=== PATIENT | female | born 1945 | race American Indian/Alaskan Native ===

== ENCOUNTER 2017-02-19 15:20 | Inpatient (IN) | payer MEDICARE, BC ==
--- NOTE | 2017-02-19 16:10 | EDM.PDOC ---
ED HPI GENERAL MEDICAL PROBLEM - General Chief Complaint: Back Pain or Injury Stated Complaint: [facility] Time Seen by Provider: 02/19/17 15:48 Source of Information: Reports: Patient - History of Present Illness INITIAL COMMENTS - FREE TEXT/NARRATIVE: Patient was brought by ambulance today for "feeling off". She had N/V yesterday , eating/drinking ok today without further episodes. She reports headache, fatigue and overall feeling of weakness. Has lower back pain, feels like this is worse on the left. She does have chronic lumbago and was recently switched from oxycodone to tramadol due to side effect of dizziness. Had recent UTI, this was treated with unknown antibiotic. Denies dysuria or hematuria. She also reports a yeast rash to abdomen and under right breast (had left mastectomy due to cancer). 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: Psychiatric History: Reports: Anxiety Endocrine/Metabolic History: Reports: Diabetes, type II - Past Surgical History HEENT Surgical History: Reports: Cataract surgery GI Surgical History: Reports: Cholecystectomy Female Surgical History: Reports: Hysterectomy Musculoskeletal Surgical History: Reports: Joint replacement Other Musculoskeletal Surgeries/Procedures:: bilateral knees Social & Family History - Tobacco Use Smoking Status *Q: Never Smoker Second Hand Smoke Exposure: No - Caffeine Use Caffeine Use: Reports: None - Alcohol Use Days Per Week of Alcohol Use: 0 - Recreational Drug Use Recreational Drug Use: No ED ROS GENERAL - Review of Systems Review Of Systems: See Below Constitutional: Reports: malaise, weakness, fatigue. Denies: fever, chills, diaphoresis, decreased appetite HEENT: Reports: No symptoms Respiratory: Reports: No Symptoms Cardiovascular: Reports: No symptoms GI/Abdominal: Reports: No symptoms : Reports: flank pain. Denies: dysuria, frequency, hematuria Musculoskeletal: Reports: back pain Skin: Reports: rash, erythema Neurological: Reports: No Symptoms Psychiatric: Reports: No symptoms ED EXAM, GENERAL - Physical Exam Exam: See Below Exam Limited By: No limitations General Appearance: alert, WD/WN, no apparent distress Ear Exam: bilateral ear: auricle normal, canal normal, TM normal Nose: normal inspection Throat/Mouth: Normal inspection, Normal oropharynx Head: atraumatic, normocephalic Neck: normal inspection. No: lymphadenopathy (L), lymphadenopathy (R) Respiratory/Chest: no respiratory distress, lungs clear, normal breath sounds Cardiovascular: regular rate, rhythm, no murmur GI/Abdominal: normal bowel sounds, soft, non tender Back Exam: paraspinal tenderness. No: CVA tenderness (L), CVA tenderness (R) Neurological: alert, oriented, no motor/sensory deficits Psychiatric: normal affect, normal mood Skin Exam: Warm, Dry, Other (Warm, erythematous rash to left upper abdomen and left flank/back. ) Course - Vital Signs Last Recorded V/S: Last Vital Signs Temp 100.8 F H 02/19/17 15:32 Pulse 88 02/19/17 15:32 Resp 20 02/19/17 15:32 BP 160/69 H 02/19/17 15:32 Pulse Ox 90 L 02/19/17 15:32 - Orders/Labs/Meds Orders: Active Orders 24 hr Category Date Time Status Chest 2V [CR] Stat Exams 02/19/17 16:09 Taken CULTURE BLOOD [BC] Stat Lab 02/19/17 18:15 Ordered CULTURE BLOOD [BC] Stat Lab 02/19/17 18:15 Ordered CULTURE URINE [RM] Stat Lab 02/19/17 16:20 Received SEDIMENTATION RATE AUTO [HEME] Stat Lab 02/19/17 18:27 Ordered Linezolid [Zyvox] Med 02/19/17 18:30 Active 600 mg PO Q12H cefTRIAXone [Rocephin] 2 gm Med 02/19/17 18:27 Active Sodium Chloride 0.9% [Normal Saline] 100 ml IV ONETIME Blood Culture x2 Reflex Set [OM.PC] Stat Oth 02/19/17 18:15 Ordered Medication Orders Ceftriaxone Sodium 2 gm/ (Sodium Chloride) 100 mls @ 200 mls/hr IV ONETIME ONE Stop: 02/19/17 18:56 Linezolid (Zyvox) 600 mg PO Q12H IZAIAH Labs: Laboratory Tests 02/19/17 02/19/17 02/19/17 Range/Units 16:20 16:24 16:24 WBC 25.51 H (3.98-10.04) K/mm3 RBC 3.73 L (3.98-5.22) M/mm3 Hgb 10.6 L (11.2-15.7) gm/L Hct 33.6 L (34.1-44.9) % MCV 90.1 (79.4-94.8) fl MCH 28.4 (25.6-32.2) pg MCHC 31.5 L (32.2-35.5) g/dl RDW Std Deviation 47.0 H (36.4-46.3) fL Plt Count 259 (182-369) K/mm3 MPV 10.8 (9.4-12.3) fl Neutrophils % (Manual) 92 H (40-60) % Band Neutrophils % 1 (0-10) % Lymphocytes % (Manual) 6 L (20-40) % Atypical Lymphs % 0 % Monocytes % (Manual) 1 L (2-10) % Eosinophils % (Manual) 0 L (0.7-5.8) % Basophils % (Manual) 0 L (0.1-1.2) Platelet Estimate Adequate RBC Morph Comment Normal Sodium 138 (136-145) mEq/L Potassium 4.6 (3.5-5.1) mEq/L Chloride 107 (98-107) mEq/L Carbon Dioxide 23 (21-32) mEq/L Anion Gap 12.6 (5-15) BUN 29 H (7-18) mg/dL Creatinine 1.4 H (0.55-1.02) mg/dL Est Cr Clr Drug Dosing 27.41 mL/min Estimated GFR (MDRD) 37 (>60) mL/min BUN/Creatinine Ratio 20.7 H (14-18) Glucose 143 H (83-115) mg/dL Calcium 8.3 L (8.5-10.1) mg/dL Total Bilirubin 0.3 (0.2-1.0) mg/dL AST 14 L (15-37) U/L ALT 19 (14-59) U/L Alkaline Phosphatase 74 (46-116) U/L C-Reactive Protein 4.7 H* (<1.0) mg/dL Total Protein 7.4 (6.4-8.2) g/dl Albumin 3.0 L (3.4-5.0) g/dl Globulin 4.4 gm/dL Albumin/Globulin Ratio 0.7 L (1-2) Urine Color Yellow (Yellow) Urine Appearance Slt cloudy H (Clear) Urine pH 5.5 (5.0-8.0) Ur Specific [place] 1.025 (1.005-1.030) Urine Protein 3+ H (Negative) Urine Glucose (UA) Trace H (Negative) Urine Ketones Negative (Negative) Urine Occult Blood Trace-lysed H (Negative) Urine Nitrite Positive H (Negative) Urine Bilirubin Negative (Negative) Urine Urobilinogen 0.2 (0.2-1.0) Ur Leukocyte Esterase Negative (Negative) Urine RBC 0-5 (0-5) /hpf Urine WBC 10-20 H (0-5) /hpf Ur Squamous Epith Cells 10-20 H (0-5) /hpf Urine Bacteria Few (FEW) /hpf Urine Mucus Not seen (FEW) /hpf Meds: Medications Generic Name Dose Route Start Last Admin Trade Name Freq PRN Reason Stop Dose Admin Ceftriaxone Sodium 2 gm/ 100 mls @ 200 mls/hr 02/19/17 18:27 Sodium Chloride IV 02/19/17 18:56 ONETIME ONE Linezolid 600 mg 02/19/17 18:30 Zyvox PO Q12H IZAIAH - Re-Assessments/Exams Free Text/Narrative Re-Assessment/Exam: Likely pyelonephritis as well as significant cellulitis to left abdomen and back. WBC 25,510 and CRP 4.7. Blood cultures pending. Discussed with Dr Bloom, with increased risk due to diabetes she will be admitted. Treatment of infection started in ER with 2g Rocephin and 600mg to cover MRSA as well. Discussed with Dr Olivarez/hospitalist and she agrees to admit the patient. 02/19/17 18:29 02/19/17 18:35 Departure - Departure Time of Disposition: 18:38 Disposition: Admitted As Inpatient 65 Condition: fair Clinical Impression: Pyelonephritis Cellulitis Qualifiers: Site of cellulitis: trunk Site of cellulitis of trunk: abdominal wall Qualified Code(s): L03.311 - Cellulitis of abdominal wall Referrals: PCP,Unknown [Primary Care Provider] - Forms: ED Department Discharge - My Orders Last 24 Hours: My Active Orders 02/19/17 16:09 Chest 2V [CR] Stat 02/19/17 16:20 CULTURE URINE [RM] Stat 02/19/17 18:15 CULTURE BLOOD [BC] Stat CULTURE BLOOD [BC] Stat Blood Culture x2 Reflex Set [OM.PC] Stat 02/19/17 18:27 SEDIMENTATION RATE AUTO [HEME] Stat cefTRIAXone [Rocephin] 2 gm Sodium Chloride 0.9% [Normal Saline] 100 ml IV ONETIME 02/19/17 18:30 Linezolid [Zyvox] 600 mg PO Q12H - Assessment/Plan Last 24 Hours: My Active Orders 02/19/17 16:09 Chest 2V [CR] Stat 02/19/17 16:20 CULTURE URINE [RM] Stat 02/19/17 18:15 CULTURE BLOOD [BC] Stat CULTURE BLOOD [BC] Stat Blood Culture x2 Reflex Set [OM.PC] Stat 02/19/17 18:27 SEDIMENTATION RATE AUTO [HEME] Stat cefTRIAXone [Rocephin] 2 gm Sodium Chloride 0.9% [Normal Saline] 100 ml IV ONETIME 02/19/17 18:30 Linezolid [Zyvox] 600 mg PO Q12H
[2017-02-19] MEDS ORDERED: cefTRIAXone 2 GM in Sodium Chloride 0.9% 100 ML IV ONE (18:27)
[2017-02-19] MEDS ORDERED: Linezolid 600 MG Tab PO SCH (18:30)
[2017-02-19] MEDS ORDERED: 50% Dextrose in Water 50 ML Syringe IVPUSH PRN (19:26)
[2017-02-19] MEDS ORDERED: Sodium Chloride 0.9% 1,000 ML IV SCH (19:30)
--- NOTE | 2017-02-19 19:32 | PCM.HP ---
H&P History of Present Illness - General Date of Service: 02/19/17 Admit Problem/Dx: Admission Diagnosis/Problem Admission Diagnosis/Problem Cellulitis Source of Information: Patient, Provider History Limitations: Reports: No limitations - History of Present Illness Initial Comments - Free Text/Narative: 71 year old female with PMH DM, recently had antibiotic therapy for a UTI; does not feel well. Has had episode of N/V. Has a sense of malaise, generalized weakness. Has not been febrile or had chills. A UA supports an AUTI or recurrent, additionally, a cellulitis is noted on the upper abdomen. WBC 25.51 (92% N)/CRP 4.7/ UA + Nitrites. UC and BC s have been drawn; the patient received Zyvox and Rocephin in the ED. Onset of Symptoms: Reports: gradual Duration of Symptoms: Reports: Day(s):, Getting worse Location: Reports: abdomen Severity: moderate Improves with: Reports: Medication Worsens with: Reports: None Associated Symptoms: Reports: fever/chills, malaise, weakness Back Pain Score (Numeric/FACES): 4 - Related Data Allergies/Adverse Reactions: Allergies Allergy/AdvReac Type Severity Reaction Status Date / Time glimepiride Allergy Rash Verified 02/19/17 15:32 sulfamethoxazole AdvReac Vomiting Verified 02/20/17 08:11 [From Bactrim] trimethoprim [From Bactrim] AdvReac Vomiting Verified 02/20/17 08:11 Home Medications: Home Meds Bumetanide 0.5 mg PO DAILY 02/19/17 [History] Cholecalciferol (Vitamin D3) [Vitamin D3] 5,000 unit PO DAILY 02/19/17 [History] Clopidogrel [Plavix] 75 mg PO DAILY 02/19/17 [History] Enalapril [Vasotec] 40 mg PO DAILY 02/19/17 [History] Ferrous Sulfate [High Potency Iron] 325 mg PO DAILY 02/19/17 [History] Fish Oil/Trumann-3 Fatty Acids [Fish Oil 1,000 MG] 1,000 mg PO DAILY 02/19/17 [ History] Metoprolol Succinate [Toprol XL] 25 mg PO DAILY 02/19/17 [History] glipiZIDE [Glipizide ER] 5 mg PO BID 02/19/17 [History] traMADol HCl [Tramadol HCl] 50 mg PO TID PRN 02/19/17 [History] Past Medical History Cardiovascular History: Reports: High cholesterol, Hypertension 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: Psychiatric History: Reports: Anxiety Endocrine/Metabolic History: Reports: Diabetes, type II - Past Surgical History HEENT Surgical History: Reports: Cataract surgery GI Surgical History: Reports: Cholecystectomy Female Surgical History: Reports: Hysterectomy Musculoskeletal Surgical History: Reports: Joint replacement Other Musculoskeletal Surgeries/Procedures:: bilateral knees Social & Family History - Tobacco Use Smoking Status *Q: Never Smoker Second Hand Smoke Exposure: No - Caffeine Use Caffeine Use: Reports: None - Alcohol Use Days Per Week of Alcohol Use: 0 - Recreational Drug Use Recreational Drug Use: No H&P Review of Systems - Review of Systems: Review Of Systems: See Below General: Reports: fever, malaise, weakness, fatigue HEENT: Reports: no symptoms Pulmonary: Reports: No Symptoms Cardiovascular: Reports: no symptoms Gastrointestinal: Reports: No symptoms Genitourinary: Reports: frequency. Denies: no symptoms Musculoskeletal: Reports: no symptoms Skin: Reports: rash Psychiatric: Reports: no symptoms Neurological: Reports: No Symptoms Hematologic/Lymphatic: Reports: no symptoms Immunologic: Reports: no symptoms Exam - Exam Exam: See Below - Vital Signs Vital Signs: Last Vital Signs Temp 37.3 C 02/19/17 19:05 Pulse 79 02/19/17 19:05 Resp 16 02/19/17 19:05 BP 124/63 02/19/17 19:05 Pulse Ox 95 02/19/17 19:05 Weight: 107.456 kg - Exam Quality Assessment: DVT prophylaxis General: alert, oriented, cooperative, mild distress HEENT: Conjunctiva clear, EACs clear, EOMI, Nares patent, Normal nasal septum, Pupils equal, Pupils reactive Neck: supple, trachea midline Lungs: Normal respiratory effort Cardiovascular: regular rate, regular rhythm Abdomen: normal bowel sounds, soft, other (panus with skin rash, non pruritic) (Female) Exam: Deferred Rectal (Female) Exam: Deferred Back Exam: CVA tenderness (L), other (rash noted) Extremities: edema (1+) Skin: warm, rash (abdomen) Neurological: cranial nerves intact, normal gait, normal speech Neuro Extensive - Mental Status: alert, oriented x3, normal mood/affect, normal cognition, memory intact Neuro Extensive - Motor, Sensory, Reflexes: CN II-XII intact Psychiatric: alert, normal affect, normal mood - Patient Data Result Diagrams: 02/20/17 06:57 02/20/17 06:57 *Q Meaningful Use (ADM) - VTE *Q VTE Criteria *Q: - Stroke *Q Stroke Criteria *Q: - AMI *Q AMI Criteria *Q: - Problem List (1) Cellulitis SNOMED Code(s): 627707289 ICD Code: L03.90 - CELLULITIS, UNSPECIFIED Status: Acute Current Visit: Yes Qualifiers: Site of cellulitis: trunk Site of cellulitis of trunk: abdominal wall Qualified Code(s): L03.311 - Cellulitis of abdominal wall (2) Cellulitis SNOMED Code(s): 440731324 ICD Code: L03.90 - CELLULITIS, UNSPECIFIED Status: Acute Current Visit: No Onset Date: 12/16/14 (3) UTI, Urinary tract infectious disease SNOMED Code(s): 23519973 ICD Code: N39.0 - URINARY TRACT INFECTION, SITE NOT SPECIFIED Status: Acute Current Visit: No Problem List Initiated/Reviewed/Updated: Yes Orders Last 24hrs: Active Orders 24 hr Category Date Time Status Accu Check [Blood Glucose Check, Bedside] [RC] Care 02/19/17 19:25 Ordered QIDACANDBED Activity as Tolerated [RC] .Routine Care 02/19/17 19:08 Ordered Antiembolic Devices [RC] PER UNIT ROUTINE Care 02/19/17 19:24 Ordered Consult to Care Management [Consult to Case Management] Cons 02/22/17 09:00 Ordered [CONS] Routine Consult to Diabetic Nurse Specialist [CONS] Routine Cons 02/22/17 11:00 Ordered Consult to Occupational Therapy [OT Evaluation and Cons 02/22/17 08:00 Ordered Treatment] [CONS] Routine Consult to Physical Therapy [PT Evaluation and Cons 02/22/17 09:00 Ordered Treatment] [CONS] Routine ADA Diabetic [[employer] Diabetic [employer] Diet] [DIET Diet 02/19/17 Dinner Ordered ] BASIC METABOLIC PANEL,BMP [CHEM] DAILY Lab 02/20/17 05:00 Ordered BASIC METABOLIC PANEL,BMP [CHEM] DAILY Lab 02/21/17 05:00 Ordered BASIC METABOLIC PANEL,BMP [CHEM] DAILY Lab 02/22/17 05:00 Ordered CBC WITH AUTO DIFF [HEME] DAILY Lab 02/20/17 05:00 Ordered CBC WITH AUTO DIFF [HEME] DAILY Lab 02/21/17 05:00 Ordered CBC WITH AUTO DIFF [HEME] DAILY Lab 02/22/17 05:00 Ordered CRP [C-REACTIVE PROTEIN] [CHEM] DAILY Lab 02/20/17 05:00 Ordered CRP [C-REACTIVE PROTEIN] [CHEM] DAILY Lab 02/21/17 05:00 Ordered CRP [C-REACTIVE PROTEIN] [CHEM] DAILY Lab 02/22/17 05:00 Ordered GLYCOSYLATED HEMOGLOBIN,HGBA1C [CHEM] Routine Lab 02/20/17 05:00 Ordered LIPID PANEL [CHEM] Routine Lab 02/20/17 05:00 Ordered MAGNESIUM [CHEM] DAILY Lab 02/20/17 05:00 Ordered MAGNESIUM [CHEM] DAILY Lab 02/21/17 05:00 Ordered MAGNESIUM [CHEM] DAILY Lab 02/22/17 05:00 Ordered TSH [CHEM] Routine Lab 02/20/17 05:00 Ordered Bumetanide [Bumex] Med 02/20/17 09:00 Once 0.5 mg IVPUSH ONETIME ONE Clopidogrel [Plavix] Med 02/20/17 09:00 Ordered 75 mg PO DAILY Dextrose 50% in Water Med 02/19/17 19:26 Ordered 50 ml IVPUSH ASDIRECTED PRN Enoxaparin [Lovenox] Med 02/20/17 09:00 Ordered 30 mg SUBCUT DAILY Ferrous Sulfate [High Potency Iron] Med 02/20/17 09:00 Ordered 325 mg PO DAILY Insulin Aspart [NovoLOG] Med 02/19/17 22:00 Ordered See Protocol SUBCUT QIDACANDBED Metoprolol Succinate [Toprol XL] Med 02/20/17 09:00 Ordered 25 mg PO DAILY Nystatin [Nystop] Med 02/19/17 21:00 Ordered 1 gm TOP BID Sodium Chloride 0.9% @ 75 MLS/HR(1000ml Bag) Med 02/19/17 19:30 Ordered Sodium Chloride 0.9% [Normal Saline] 1,000 ml IV ASDIRECTED Vancomycin Pharmacy to Dose [Pharmacy to Dose - Med 02/19/17 19:15 Ordered Vancomycin] 1 dose .XX ASDIRECTED Vancomycin [Vancocin] 1 gm Med 02/19/17 22:00 Ordered Sodium Chloride 0.9% [Normal Saline] 250 ml IV ONETIME cefTRIAXone [Rocephin] 2 gm Med 02/20/17 08:00 Ordered Sodium Chloride 0.9% [Normal Saline] 100 ml IV Q24H traMADol [Ultram] Med 02/19/17 19:17 Ordered 50 mg PO TID PRN PETEY Hose [Antiembolic Hose] [OM.PC] Routine Oth 02/19/17 19:24 Ordered Code Status [Resuscitation Status] Routine Resus Stat 02/19/17 19:04 Ordered Medication Orders Bumetanide (Bumex) 0.5 mg IVPUSH ONETIME ONE Stop: 02/20/17 09:01 Clopidogrel Bisulfate (Plavix) 75 mg PO DAILY IZAIAH Dextrose/Water (Dextrose 50% In Water) 50 ml IVPUSH ASDIRECTED PRN PRN Reason: Hypoglycemia Enoxaparin Sodium (Lovenox) 30 mg SUBCUT DAILY [facility] Vancomycin HCl 1 gm/ Sodium (Chloride) 250 mls @ 250 mls/hr IV ONETIME ONE Stop: 02/19/17 22:59 Ceftriaxone Sodium 2 gm/ (Sodium Chloride) 100 mls @ 200 mls/hr IV Q24H IZAIAH Sodium Chloride (Normal Saline) 1,000 mls @ 75 mls/hr IV ASDIRECTED [facility] Insulin Aspart (Novolog) 0 unit SUBCUT QIDACANDBED [facility] PRN Reason: Protocol Metoprolol Succinate (Toprol Xl) 25 mg PO DAILY [facility] Non-Formulary Medication (Ferrous Sulfate [High Potency Iron]) 325 mg PO DAILY IZAIAH Nystatin (Nystop) 1 gm TOP BID IZAIAH Tramadol HCl (Ultram) 50 mg PO TID PRN PRN Reason: Pain Vancomycin HCl (Pharmacy To Dose - Vancomycin) 1 dose .XX ASDIRECTED [facility] Assessment/Plan Comment:: Impression: Leukocytosis (left shift) with Cellulitis AUTI Diabetes Mellitus Chronic back pain, dizziness after medication change Skin rash under breast Cellulitis on abdomen Chronic Diabetes mellitus HTN Hyperlipidemia Morbid Obesity Plan: Continue Rocephin 2 gm IV Q 24 H Start Vancomycin 1 gm, pharmacy to dose IVF, then dc. Resume home meds PT/OT, may need Home Health DVT/GI prophylaxis
[2017-02-19] MEDS: Insulin Aspart 100 Units/ML 3 ML Pen SUBCUT SCH (21:08)
[2017-02-19] MEDS: Nystatin Topical Powder 15 GM Bottle TOP SCH (21:08)
[2017-02-20] MEDS: Insulin Aspart 100 Units/ML 3 ML Pen SUBCUT SCH ×4 (08:08→21:31)
[2017-02-20] MEDS ORDERED: Bumetanide 1 MG/4 ML MDV IVPUSH ONE (09:00)
[2017-02-20] MEDS: Ferrous Sulfate 325 MG Tab PO SCH (09:59)
[2017-02-20] MEDS: Nystatin Topical Powder 15 GM Bottle TOP SCH ×2 (10:00→21:30)
[2017-02-20] MEDS: Enoxaparin 30 MG/0.3 ML Syringe SUBCUT SCH (10:00)
[2017-02-20] MEDS: Metoprolol Succinate 25 MG Tab.ER PO SCH (10:02)
[2017-02-20] MEDS: Clopidogrel 75 MG Tab PO SCH (10:02)
--- NOTE | 2017-02-20 13:33 | PCM.PN ---
- General Info Date of Service: 02/20/17 Functional Status: Reports: pain controlled, tolerating diet, ambulating, urinating - Review of Systems General: Reports: No Symptoms HEENT: Reports: no symptoms Pulmonary: Reports: no symptoms Cardiovascular: Reports: No Symptoms Gastrointestinal: Reports: No symptoms Genitourinary: Reports: no symptoms Musculoskeletal: Reports: no symptoms Skin: Reports: no symptoms Neurological: Reports: No Symptoms Psychiatric: Reports: no symptoms - Patient Data Vitals - most recent: Last Vital Signs Temp 37.2 C 02/20/17 08:09 Pulse 73 02/20/17 10:02 Resp 18 02/20/17 08:09 BP 120/64 02/20/17 10:02 Pulse Ox 95 02/20/17 08:09 Weight - most recent: 107.547 kg I&O - last 24 hours: Intake & Output 02/19/17 02/20/17 02/20/17 22:59 06:59 14:59 Intake Total 1250 120 Output Total 300 800 Balance -300 450 120 Lab Results last 24 hrs: Laboratory Results - last 24 hr 02/19/17 02/20/17 02/20/17 Range/Units 21:06 06:57 06:57 WBC 16.23 H (3.98-10.04) K/mm3 RBC 3.21 L (3.98-5.22) M/mm3 Hgb 9.2 L (11.2-15.7) gm/L Hct 29.5 L (34.1-44.9) % MCV 91.9 (79.4-94.8) fl MCH 28.7 (25.6-32.2) pg MCHC 31.2 L (32.2-35.5) g/dl RDW Std Deviation 47.2 H (36.4-46.3) fL Plt Count 227 (182-369) K/mm3 MPV 11.1 (9.4-12.3) fl Neut % (Auto) 78.4 H (34.0-71.1) % Lymph % (Auto) 14.0 L (19.3-51.7) % [place] % (Auto) 6.4 (4.7-12.5) % Eos % (Auto) 1.0 (0.7-5.8) Baso % (Auto) 0.1 (0.1-1.2) % Neut # (Auto) 12.72 H (1.56-6.13) K/mm3 Lymph # (Auto) 2.27 (1.18-3.74) K/mm3 [place] # (Auto) 1.04 H (0.24-0.36) K/mm3 Eos # (Auto) 0.16 (0.04-0.36) K/mm3 Baso # (Auto) 0.02 (0.01-0.08) K/mm3 Sodium 139 (136-145) mEq/L Potassium 4.1 (3.5-5.1) mEq/L Chloride 107 (98-107) mEq/L Carbon Dioxide 25 (21-32) mEq/L Anion Gap 11.1 (5-15) BUN 28 H (7-18) mg/dL Creatinine 1.4 H (0.55-1.02) mg/dL Est Cr Clr Drug Dosing 27.41 mL/min Estimated GFR (MDRD) 37 (>60) mL/min BUN/Creatinine Ratio 20.0 H (14-18) Glucose 101 (83-115) mg/dL POC Glucose 143 H (83-110) mg/dL Hemoglobin A1c (4.50-6.20) % Calcium 7.7 L (8.5-10.1) mg/dL Magnesium 2.0 (1.8-2.4) mg/dl C-Reactive Protein 13.6 H* (<1.0) mg/dL Triglycerides 114 (<150) mg/dL Cholesterol 165 (<200) mg/dL LDL Cholesterol Direct 93 (<100) mg/dL HDL Cholesterol 51.0 (40-59) mg/dL TSH 3rd Generation 1.514 (0.358-3.74) uIU/mL 02/20/17 02/20/17 02/20/17 Range/Units 06:57 07:53 11:27 WBC (3.98-10.04) K/mm3 RBC (3.98-5.22) M/mm3 Hgb (11.2-15.7) gm/L Hct (34.1-44.9) % MCV (79.4-94.8) fl MCH (25.6-32.2) pg MCHC (32.2-35.5) g/dl RDW Std Deviation (36.4-46.3) fL Plt Count (182-369) K/mm3 MPV (9.4-12.3) fl Neut % (Auto) (34.0-71.1) % Lymph % (Auto) (19.3-51.7) % [place] % (Auto) (4.7-12.5) % Eos % (Auto) (0.7-5.8) Baso % (Auto) (0.1-1.2) % Neut # (Auto) (1.56-6.13) K/mm3 Lymph # (Auto) (1.18-3.74) K/mm3 [place] # (Auto) (0.24-0.36) K/mm3 Eos # (Auto) (0.04-0.36) K/mm3 Baso # (Auto) (0.01-0.08) K/mm3 Sodium (136-145) mEq/L Potassium (3.5-5.1) mEq/L Chloride (98-107) mEq/L Carbon Dioxide (21-32) mEq/L Anion Gap (5-15) BUN (7-18) mg/dL Creatinine (0.55-1.02) mg/dL Est Cr Clr Drug Dosing mL/min Estimated GFR (MDRD) (>60) mL/min BUN/Creatinine Ratio (14-18) Glucose (83-115) mg/dL POC Glucose 98 153 H (83-110) mg/dL Hemoglobin A1c 7.50 H (4.50-6.20) % Calcium (8.5-10.1) mg/dL Magnesium (1.8-2.4) mg/dl C-Reactive Protein (<1.0) mg/dL Triglycerides (<150) mg/dL Cholesterol (<200) mg/dL LDL Cholesterol Direct (<100) mg/dL HDL Cholesterol (40-59) mg/dL TSH 3rd Generation (0.358-3.74) uIU/mL Med Orders - Current: Current Medications Clopidogrel Bisulfate (Plavix) 75 mg PO DAILY [facility] Last Admin: 02/20/17 10:02 Dose: 75 mg Dextrose/Water (Dextrose 50% In Water) 50 ml IVPUSH ASDIRECTED PRN PRN Reason: Hypoglycemia Enoxaparin Sodium (Lovenox) 30 mg SUBCUT DAILY [facility] Last Admin: 02/20/17 10:00 Dose: 30 mg Ferrous Sulfate (Ferrous Sulfate) 325 mg PO DAILY [facility] Last Admin: 02/20/17 09:59 Dose: 325 mg Vancomycin HCl 1 gm/ Sodium (Chloride) 250 mls @ 250 mls/hr IV Q24H [facility] Last Admin: 02/19/17 21:09 Dose: 250 mls/hr Ceftriaxone Sodium 2 gm/ (Sodium Chloride) 100 mls @ 200 mls/hr IV Q24H [facility] Insulin Aspart (Novolog) 0 unit SUBCUT QIDACANDBED [facility] PRN Reason: Protocol Last Admin: 02/20/17 11:45 Dose: 1 unit Metoprolol Succinate (Toprol Xl) 25 mg PO DAILY [facility] Last Admin: 02/20/17 10:02 Dose: 25 mg Nystatin (Nystop) 0 gm TOP BID [facility] Last Admin: 02/20/17 10:00 Dose: 1 applic Tramadol HCl (Ultram) 50 mg PO TID PRN PRN Reason: Pain Vancomycin HCl (Pharmacy To Dose - Vancomycin) 0 dose .XX ASDIRECTED PRN PRN Reason: RX TO DOSE VANCOMYCIN Discontinued Medications Bumetanide (Bumex) 0.5 mg IVPUSH ONETIME ONE Stop: 02/20/17 09:01 Last Admin: 02/20/17 10:04 Dose: 0.5 mg Ceftriaxone Sodium 2 gm/ (Sodium Chloride) 100 mls @ 200 mls/hr IV ONETIME ONE Stop: 02/19/17 18:56 Last Admin: 02/19/17 18:49 Dose: 200 mls/hr Sodium Chloride (Normal Saline) 1,000 mls @ 75 mls/hr IV ASDIRECTED [facility] Last Admin: 02/19/17 21:09 Dose: 75 mls/hr Linezolid (Zyvox) 600 mg PO Q12H [facility] Last Admin: 02/19/17 20:11 Dose: Not Given - Exam Quality Assessment: DVT prophylaxis General: alert, oriented, cooperative, no acute distress HEENT: Pupils equal, Pupils reactive, EOMI Neck: supple, trachea midline, no JVD Lungs: Normal respiratory effort Cardiovascular: Regular Rate, Regular Rhythm Abdomen: bowel sounds present, soft, no tenderness, no distension (Female) Exam: Deferred Back Exam: normal inspection Extremities: normal pulses, edema Skin: warm Neurological: no new focal deficit, normal gait, normal speech Psy/Mental Status: alert, normal affect, normal mood - Problem List Review Problem List Initiated/Reviewed/Updated: Yes - My Orders Last 24 Hours: My Active Orders 02/19/17 19:04 Code Status [Resuscitation Status] Routine 02/19/17 19:05 Admission Status [Patient Status] [ADT] Routine 02/19/17 19:08 Activity as Tolerated [RC] .Routine 02/19/17 19:17 traMADol [Ultram] 50 mg PO TID PRN 02/19/17 19:24 Antiembolic Devices [RC] 10,22 PETEY Hose [Antiembolic Hose] [OM.PC] Routine 02/19/17 19:25 Accu Check [Blood Glucose Check, Bedside] [RC] QIDACANDBED 02/19/17 19:26 Dextrose 50% in Water 50 ml IVPUSH ASDIRECTED PRN 02/19/17 21:00 Nystatin [Nystop] 0 gm TOP BID 02/19/17 22:00 Insulin Aspart [NovoLOG] See Protocol SUBCUT QIDACANDBED Vancomycin Pharmacy to Dose [Pharmacy to Dose - Vancomycin] 0 dose .XX ASDIRECTED PRN Vancomycin [Vancocin] 1 gm Sodium Chloride 0.9% [Normal Saline] 250 ml IV Q24H 02/19/17 Dinner ADA Diabetic [[employer] Diet] [DIET] 02/20/17 05:55 Oxygen Therapy Adult [Oxygen Therapy] [RC] ASDIRECTED 02/20/17 09:00 Clopidogrel [Plavix] 75 mg PO DAILY Enoxaparin [Lovenox] 30 mg SUBCUT DAILY Ferrous Sulfate 325 mg PO DAILY Metoprolol Succinate [Toprol XL] 25 mg PO DAILY 02/20/17 18:00 cefTRIAXone [Rocephin] 2 gm Sodium Chloride 0.9% [Normal Saline] 100 ml IV Q24H 02/21/17 05:00 BASIC METABOLIC PANEL,BMP [CHEM] DAILY CBC WITH AUTO DIFF [HEME] DAILY CRP [C-REACTIVE PROTEIN] [CHEM] DAILY MAGNESIUM [CHEM] DAILY 02/22/17 05:00 BASIC METABOLIC PANEL,BMP [CHEM] DAILY CBC WITH AUTO DIFF [HEME] DAILY CRP [C-REACTIVE PROTEIN] [CHEM] DAILY MAGNESIUM [CHEM] DAILY 02/22/17 08:00 Consult to Occupational Therapy [OT Evaluation and Treatment] [CONS] Routine 02/22/17 09:00 Consult to Care Management [Consult to Case Management] [CONS] Routine Consult to Physical Therapy [PT Evaluation and Treatment] [CONS] Routine 02/22/17 11:00 Consult to Diabetic Nurse Specialist [CONS] Routine 02/22/17 21:30 VANCOMYCIN TROUGH [CHEM] Timed - Plan Plan:: Impression: AUTI Cellulitis Morbid Obesity, BMI 44.8 Diabetes mellitus Plan: DC IVF Diurese Home Meds Rocephin Vancomycin, received one dose of Zyvox Diabetic teaching/education; wgt loss program PT/OT DVT/GI prophylaxis DC: 02/22/17; needs SW assessment for DC
[2017-02-20] MEDS: traMADol 50 MG Tab PO PRN ×2 (15:28→21:37)
[2017-02-20] MEDS: cefTRIAXone 2 GM in Sodium Chloride 0.9% 100 ML IV SCH (17:01)
[2017-02-21] MEDS: Insulin Aspart 100 Units/ML 3 ML Pen SUBCUT SCH ×4 (07:55→21:00)
[2017-02-21] MEDS: Metoprolol Succinate 25 MG Tab.ER PO SCH (09:14)
[2017-02-21] MEDS: Enoxaparin 30 MG/0.3 ML Syringe SUBCUT SCH (09:14)
[2017-02-21] MEDS: Clopidogrel 75 MG Tab PO SCH (09:15)
[2017-02-21] MEDS: Ferrous Sulfate 325 MG Tab PO SCH (09:15)
[2017-02-21] MEDS: Nystatin Topical Powder 15 GM Bottle TOP SCH ×2 (09:15→20:56)
[2017-02-21] MEDS: traMADol 50 MG Tab PO PRN ×2 (09:19→20:57)
--- NOTE | 2017-02-21 09:27 | CR ---
Chest: Two views of the chest were obtained. Comparison: Previous chest x-ray of 12/16/14. Heart size is within normal limits for AP technique. Tortuous thoracic aorta is seen. Lungs are clear. Degenerative change noted within the right shoulder with degenerative spurring seen within the spine. Impression: 1. Incidental findings. Nothing acute is appreciated on two-view chest x-ray. Diagnostic code #2
[2017-02-21] MEDS: Bumetanide 1 MG Tab PO SCH (14:48)
--- NOTE | 2017-02-21 15:39 | PCM.PN ---
- General Info Date of Service: 02/21/17 Subjective Update: Patient states that she has some fatigue today. She she presented with lightheadedness and fevers and chills which have not recurred today. On review of systems, patient reported any chest pain, shortness of breath, abdominal pain , or nausea. - Patient Data Vitals - most recent: Last Vital Signs Temp 36.7 C 02/21/17 09:11 Pulse 71 02/21/17 09:14 Resp 20 02/21/17 09:11 BP 138/83 02/21/17 09:14 Pulse Ox 94 L 02/21/17 09:11 Weight - most recent: 107.683 kg I&O - last 24 hours: Intake & Output 02/21/17 02/21/17 02/21/17 06:59 14:59 22:59 Intake Total 850 210 Output Total 1450 Balance -600 210 Lab Results last 24 hrs: Laboratory Results - last 24 hr 02/20/17 02/20/17 02/21/17 Range/Units 16:58 21:28 06:12 WBC 13.44 H (3.98-10.04) K/mm3 RBC 3.52 L (3.98-5.22) M/mm3 Hgb 10.1 L (11.2-15.7) gm/L Hct 31.9 L (34.1-44.9) % MCV 90.6 (79.4-94.8) fl MCH 28.7 (25.6-32.2) pg MCHC 31.7 L (32.2-35.5) g/dl RDW Std Deviation 46.7 H (36.4-46.3) fL Plt Count 249 (182-369) K/mm3 MPV 11.3 (9.4-12.3) fl Neut % (Auto) 68.1 (34.0-71.1) % Lymph % (Auto) 20.3 (19.3-51.7) % [place] % (Auto) 7.7 (4.7-12.5) % Eos % (Auto) 3.3 (0.7-5.8) Baso % (Auto) 0.2 (0.1-1.2) % Neut # (Auto) 9.14 H (1.56-6.13) K/mm3 Lymph # (Auto) 2.73 (1.18-3.74) K/mm3 [place] # (Auto) 1.03 H (0.24-0.36) K/mm3 Eos # (Auto) 0.45 H (0.04-0.36) K/mm3 Baso # (Auto) 0.03 (0.01-0.08) K/mm3 Sodium (136-145) mEq/L Potassium (3.5-5.1) mEq/L Chloride (98-107) mEq/L Carbon Dioxide (21-32) mEq/L Anion Gap (5-15) BUN (7-18) mg/dL Creatinine (0.55-1.02) mg/dL Est Cr Clr Drug Dosing mL/min Estimated GFR (MDRD) (>60) mL/min BUN/Creatinine Ratio (14-18) Glucose (83-115) mg/dL POC Glucose 138 H 154 H (83-110) mg/dL Calcium (8.5-10.1) mg/dL Magnesium (1.8-2.4) mg/dl C-Reactive Protein (<1.0) mg/dL 02/21/17 02/21/17 02/21/17 Range/Units 06:12 06:59 11:17 WBC (3.98-10.04) K/mm3 RBC (3.98-5.22) M/mm3 Hgb (11.2-15.7) gm/L Hct (34.1-44.9) % MCV (79.4-94.8) fl MCH (25.6-32.2) pg MCHC (32.2-35.5) g/dl RDW Std Deviation (36.4-46.3) fL Plt Count (182-369) K/mm3 MPV (9.4-12.3) fl Neut % (Auto) (34.0-71.1) % Lymph % (Auto) (19.3-51.7) % [place] % (Auto) (4.7-12.5) % Eos % (Auto) (0.7-5.8) Baso % (Auto) (0.1-1.2) % Neut # (Auto) (1.56-6.13) K/mm3 Lymph # (Auto) (1.18-3.74) K/mm3 [place] # (Auto) (0.24-0.36) K/mm3 Eos # (Auto) (0.04-0.36) K/mm3 Baso # (Auto) (0.01-0.08) K/mm3 Sodium 137 (136-145) mEq/L Potassium 4.2 (3.5-5.1) mEq/L Chloride 106 (98-107) mEq/L Carbon Dioxide 24 (21-32) mEq/L Anion Gap 11.2 (5-15) BUN 29 H (7-18) mg/dL Creatinine 1.4 H (0.55-1.02) mg/dL Est Cr Clr Drug Dosing 27.41 mL/min Estimated GFR (MDRD) 37 (>60) mL/min BUN/Creatinine Ratio 20.7 H (14-18) Glucose 132 H (83-115) mg/dL POC Glucose 126 H 146 H (83-110) mg/dL Calcium 8.4 L (8.5-10.1) mg/dL Magnesium 1.9 (1.8-2.4) mg/dl C-Reactive Protein 14.7 H* (<1.0) mg/dL Erik Results last 24 hrs: Microbiology 02/19/17 18:45 Aerobic Blood Culture - Preliminary Blood - Venous NO GROWTH AFTER 1 DAY Anaerobic Blood Culture - Preliminary NO GROWTH AFTER 1 DAY 02/19/17 18:50 Aerobic Blood Culture - Preliminary Blood - Venous - Lab Draw NO GROWTH AFTER 1 DAY Anaerobic Blood Culture - Preliminary NO GROWTH AFTER 1 DAY Med Orders - Current: Current Medications Bumetanide (Bumex) 0.5 mg PO DAILY [facility] Last Admin: 02/21/17 14:48 Dose: 0.5 mg Clopidogrel Bisulfate (Plavix) 75 mg PO DAILY [facility] Last Admin: 02/21/17 09:15 Dose: 75 mg Dextrose/Water (Dextrose 50% In Water) 50 ml IVPUSH ASDIRECTED PRN PRN Reason: Hypoglycemia Enoxaparin Sodium (Lovenox) 30 mg SUBCUT DAILY [facility] Last Admin: 02/21/17 09:14 Dose: 30 mg Ferrous Sulfate (Ferrous Sulfate) 325 mg PO DAILY [facility] Last Admin: 02/21/17 09:15 Dose: 325 mg Vancomycin HCl 1 gm/ Sodium (Chloride) 250 mls @ 250 mls/hr IV Q24H [facility] Last Admin: 02/20/17 21:32 Dose: 250 mls/hr Ceftriaxone Sodium 2 gm/ (Sodium Chloride) 100 mls @ 200 mls/hr IV Q24H [facility] Last Admin: 02/20/17 17:01 Dose: 200 mls/hr Insulin Aspart (Novolog) 0 unit SUBCUT QIDACANDBED [facility] PRN Reason: Protocol Last Admin: 02/21/17 11:56 Dose: Not Given Metoprolol Succinate (Toprol Xl) 25 mg PO DAILY [facility] Last Admin: 02/21/17 09:14 Dose: 25 mg Nystatin (Nystop) 0 gm TOP BID [facility] Last Admin: 02/21/17 09:15 Dose: 1 applic Tramadol HCl (Ultram) 50 mg PO TID PRN PRN Reason: Pain Last Admin: 02/21/17 09:19 Dose: 50 mg Vancomycin HCl (Pharmacy To Dose - Vancomycin) 0 dose .XX ASDIRECTED PRN PRN Reason: RX TO DOSE VANCOMYCIN Discontinued Medications Bumetanide (Bumex) 0.5 mg IVPUSH ONETIME ONE Stop: 02/20/17 09:01 Last Admin: 02/20/17 10:04 Dose: 0.5 mg Ceftriaxone Sodium 2 gm/ (Sodium Chloride) 100 mls @ 200 mls/hr IV ONETIME ONE Stop: 02/19/17 18:56 Last Admin: 02/19/17 18:49 Dose: 200 mls/hr Sodium Chloride (Normal Saline) 1,000 mls @ 75 mls/hr IV ASDIRECTED [facility] Last Admin: 02/19/17 21:09 Dose: 75 mls/hr Linezolid (Zyvox) 600 mg PO Q12H [facility] Last Admin: 02/19/17 20:11 Dose: Not Given - Exam Physical Findings Comments:: Vitals: as above General: alert and oriented. NAD. Morbidly obese. Psych: calm and cooperative HEENT: normocephalic, atraumatic. EOMI Cardiac: Normal S1, S2. regular rate. No murmurs rubs, or gallops. No JVD noted. Some edema noted in the upper extremities bilaterally. Lungs: CTAB. good air entry bilaterally. Abd: Soft, NT/ND. No HSM noted. Erythematous macular rash in the intertriginous spaces bilaterally. Skin: no new visible rashes or purpura noted Neuro: CN grossly intact. Strength intact and adequate bilaterally. - Problem List & Annotations (1) Cellulitis SNOMED Code(s): 052722672 Code(s): L03.90 - CELLULITIS, UNSPECIFIED Status: Acute Current Visit: No Onset Date: 12/16/14 (2) UTI, Urinary tract infectious disease SNOMED Code(s): 61892112 Code(s): N39.0 - URINARY TRACT INFECTION, SITE NOT SPECIFIED Status: Acute Current Visit: No - Problem List Review Problem List Initiated/Reviewed/Updated: Yes - My Orders Last 24 Hours: My Active Orders 02/21/17 13:15 Bumetanide [Bumex] 0.5 mg PO DAILY - Plan Plan:: Urinary tract infection with enterococcus species -given vancomycin and ceftriaxone. We will stop vancomycin at this time as enterococcus is sensitive. -Plan to send home on oral nitrofurantoin Cellulitis - improved. Patient has some candidal intertriginous rash which is being treated. Morbid Obesity, BMI 44.8 -PCP consider referral for bariatric surgery Fluid overload-due to fluid resuscitation and IV antibiotic administration. Resume oral Bumex. Chronic medical conditions: Diabetes mellitus DC: likely DC 02/22/17; needs SW assessment for DC
[2017-02-21] MEDS: cefTRIAXone 2 GM in Sodium Chloride 0.9% 100 ML IV SCH (17:27)
[2017-02-22] MEDS: Insulin Aspart 100 Units/ML 3 ML Pen SUBCUT SCH ×2 (06:49→11:49)
[2017-02-22 08:09] VITALS: BP 159/77
[2017-02-22] MEDS: Clopidogrel 75 MG Tab PO SCH (09:51)
[2017-02-22] MEDS: Metoprolol Succinate 25 MG Tab.ER PO SCH (09:51)
[2017-02-22] MEDS: Enoxaparin 30 MG/0.3 ML Syringe SUBCUT SCH (09:51)
[2017-02-22] MEDS: Bumetanide 1 MG Tab PO SCH (09:52)
[2017-02-22] MEDS: Ferrous Sulfate 325 MG Tab PO SCH (09:52)
[2017-02-22] MEDS: Nystatin Topical Powder 15 GM Bottle TOP SCH (09:52)
[2017-02-22] MEDS: traMADol 50 MG Tab PO PRN (10:03)
--- NOTE | 2017-02-22 13:06 | PCM.DCSUM1 ---
Discharge Summary - Hospital Course Free Text/Narrative:: 71 year old female with PMH DM, recently had antibiotic therapy for a UTI presented stating she does not feel well and had N/V with malaise, generalized weakness. Urinary tract infection with enterococcus species -given vancomycin and ceftriaxone. Urine grew enterococcus which was potts sensitive except to tetracycline. Will send home on Keflex for goal total coverage of 10 days. Cellulitis - resolved. Candidiasis - improved with nystatin Morbid Obesity, BMI 44.8 - PCP to consider referral for bariatric surgery Fluid overload-due to fluid resuscitation and IV antibiotic administration. Resumed home oral Bumex. - Discharge Data Discharge Date: 02/22/17 Discharge Disposition: Home, Self-Care 01 Condition: Good - Discharge Diagnosis/Problem(s) (1) UTI, Urinary tract infectious disease SNOMED Code(s): 97112511 ICD Code: N39.0 - URINARY TRACT INFECTION, SITE NOT SPECIFIED Status: Acute Current Visit: No (2) Cellulitis SNOMED Code(s): 646806637 ICD Code: L03.90 - CELLULITIS, UNSPECIFIED Status: Acute Current Visit: No Onset Date: 12/16/14 (3) Candidiasis SNOMED Code(s): 58911458 ICD Code: B37.9 - CANDIDIASIS, UNSPECIFIED Status: Acute Current Visit: Yes - Patient Summary/Data Consults: Consultations 02/22/17 08:00 Consult to Occupational Therapy [OT Evaluation and Treatment] [CONS] Routine 02/22/17 09:00 Consult to Care Management [Consult to Case Management] [CONS] Routine Consult to Physical Therapy [PT Evaluation and Treatment] [CONS] Routine 02/22/17 11:00 Consult to Diabetic Nurse Specialist [CONS] Routine - Patient Instructions Diet: Usual Diet as Tolerated, Diabetic Diet Activity: As Tolerated Notify Provider of: Fever, Increased Pain, Swelling and Redness, Drainage, Nausea and/or Vomiting - Discharge Plan Prescriptions/Med Rec: Cephalexin [Keflex] 500 mg PO Q12H 7 Days Nystatin [Nystop] 0 gm TOP BID #1 bottle Home Medications: Home Meds Bumetanide 0.5 mg PO DAILY 02/19/17 [History] Cholecalciferol (Vitamin D3) [Vitamin D3] 5,000 unit PO DAILY 02/19/17 [History] Clopidogrel [Plavix] 75 mg PO DAILY 02/19/17 [History] Enalapril [Vasotec] 40 mg PO DAILY 02/19/17 [History] Ferrous Sulfate [High Potency Iron] 325 mg PO DAILY 02/19/17 [History] Fish Oil/[place]-3 Fatty Acids [Fish Oil 1,000 MG] 1,000 mg PO DAILY 02/19/17 [ History] Metoprolol Succinate [Toprol XL] 25 mg PO DAILY 02/19/17 [History] glipiZIDE [Glipizide ER] 5 mg PO BID 02/19/17 [History] traMADol HCl [Tramadol HCl] 50 mg PO TID PRN 02/19/17 [History] Cephalexin [Keflex] 500 mg PO Q12H 7 Days 02/22/17 [Rx] Nystatin [Nystop] 0 gm TOP BID #1 bottle 02/22/17 [Rx] Patient Handouts: Pyelonephritis, Adult, [id number], Urinary Tract Infection , Adult, [id number], Cellulitis, Adult, [id number] Forms: ED Department Discharge Referrals: Coco Roman NP [Ordering Only Provider] - 03/08/17 1:15 pm (Please follow- up with your nurse practitioner for a post-hospital follow-up appointment with Coco Roman on March 08 at 1:15pm. This appointment is at the [facility]. If the time or date does not work for you please call and schedule a new apointment as soon as possible. ) - Patient Data Vitals - Most Recent: Last Vital Signs Temp 37.2 C 02/22/17 08:07 Pulse 73 02/22/17 09:51 Resp 20 02/22/17 08:07 BP 159/77 H 02/22/17 09:51 Pulse Ox 93 L 02/22/17 08:07 Weight - Most Recent: 107.411 kg I&O - Last 24 hours: Intake & Output 02/21/17 02/22/17 02/22/17 22:59 06:59 14:59 Intake Total 990 800 240 Output Total 520 1700 Balance 470 -900 240 Lab Results - Last 24 hrs: Laboratory Results - last 24 hr 02/21/17 02/21/17 02/22/17 Range/Units 16:09 20:56 04:40 WBC (3.98-10.04) K/mm3 RBC (3.98-5.22) M/mm3 Hgb (11.2-15.7) gm/L Hct (34.1-44.9) % MCV (79.4-94.8) fl MCH (25.6-32.2) pg MCHC (32.2-35.5) g/dl RDW Std Deviation (36.4-46.3) fL Plt Count (182-369) K/mm3 MPV (9.4-12.3) fl Neut % (Auto) (34.0-71.1) % Lymph % (Auto) (19.3-51.7) % [place] % (Auto) (4.7-12.5) % Eos % (Auto) (0.7-5.8) Baso % (Auto) (0.1-1.2) % Neut # (Auto) (1.56-6.13) K/mm3 Lymph # (Auto) (1.18-3.74) K/mm3 [place] # (Auto) (0.24-0.36) K/mm3 Eos # (Auto) (0.04-0.36) K/mm3 Baso # (Auto) (0.01-0.08) K/mm3 Sodium 137 (136-145) mEq/L Potassium 3.8 (3.5-5.1) mEq/L Chloride 104 (98-107) mEq/L Carbon Dioxide 24 (21-32) mEq/L Anion Gap 12.8 (5-15) BUN 28 H (7-18) mg/dL Creatinine 1.4 H (0.55-1.02) mg/dL Est Cr Clr Drug Dosing 27.41 mL/min Estimated GFR (MDRD) 37 (>60) mL/min BUN/Creatinine Ratio 20.0 H (14-18) Glucose 137 H (83-115) mg/dL POC Glucose 164 H 155 H (83-110) mg/dL Calcium 8.4 L (8.5-10.1) mg/dL Magnesium 1.7 L (1.8-2.4) mg/dl C-Reactive Protein 8.2 H* (<1.0) mg/dL 02/22/17 02/22/17 02/22/17 Range/Units 04:50 06:39 11:38 WBC 11.49 H (3.98-10.04) K/mm3 RBC 3.50 L (3.98-5.22) M/mm3 Hgb 10.0 L (11.2-15.7) gm/L Hct 31.2 L (34.1-44.9) % MCV 89.1 (79.4-94.8) fl MCH 28.6 (25.6-32.2) pg MCHC 32.1 L (32.2-35.5) g/dl RDW Std Deviation 45.5 (36.4-46.3) fL Plt Count 241 (182-369) K/mm3 MPV 11.4 (9.4-12.3) fl Neut % (Auto) 63.5 (34.0-71.1) % Lymph % (Auto) 22.6 (19.3-51.7) % [place] % (Auto) 8.7 (4.7-12.5) % Eos % (Auto) 4.5 (0.7-5.8) Baso % (Auto) 0.2 (0.1-1.2) % Neut # (Auto) 7.29 H (1.56-6.13) K/mm3 Lymph # (Auto) 2.60 (1.18-3.74) K/mm3 [place] # (Auto) 1.00 H (0.24-0.36) K/mm3 Eos # (Auto) 0.52 H (0.04-0.36) K/mm3 Baso # (Auto) 0.02 (0.01-0.08) K/mm3 Sodium (136-145) mEq/L Potassium (3.5-5.1) mEq/L Chloride (98-107) mEq/L Carbon Dioxide (21-32) mEq/L Anion Gap (5-15) BUN (7-18) mg/dL Creatinine (0.55-1.02) mg/dL Est Cr Clr Drug Dosing mL/min Estimated GFR (MDRD) (>60) mL/min BUN/Creatinine Ratio (14-18) Glucose (83-115) mg/dL POC Glucose 136 H 158 H (83-110) mg/dL Calcium (8.5-10.1) mg/dL Magnesium (1.8-2.4) mg/dl C-Reactive Protein (<1.0) mg/dL YAKOV Results - Last 24 hrs: Microbiology 02/19/17 18:45 Aerobic Blood Culture - Preliminary Blood - Venous NO GROWTH AFTER 2 DAYS Anaerobic Blood Culture - Preliminary NO GROWTH AFTER 2 DAYS 02/19/17 18:50 Aerobic Blood Culture - Preliminary Blood - Venous - Lab Draw NO GROWTH AFTER 2 DAYS Anaerobic Blood Culture - Preliminary NO GROWTH AFTER 2 DAYS Med Orders - Current: Current Medications Bumetanide (Bumex) 0.5 mg PO DAILY [facility] Last Admin: 02/22/17 09:52 Dose: 0.5 mg Clopidogrel Bisulfate (Plavix) 75 mg PO DAILY [facility] Last Admin: 02/22/17 09:51 Dose: 75 mg Dextrose/Water (Dextrose 50% In Water) 50 ml IVPUSH ASDIRECTED PRN PRN Reason: Hypoglycemia Enoxaparin Sodium (Lovenox) 30 mg SUBCUT DAILY [facility] Last Admin: 02/22/17 09:51 Dose: 30 mg Ferrous Sulfate (Ferrous Sulfate) 325 mg PO DAILY [facility] Last Admin: 02/22/17 09:52 Dose: 325 mg Ceftriaxone Sodium 2 gm/ (Sodium Chloride) 100 mls @ 200 mls/hr IV Q24H [facility] Last Admin: 02/21/17 17:27 Dose: 200 mls/hr Insulin Aspart (Novolog) 0 unit SUBCUT QIDACANDBED [facility] PRN Reason: Protocol Last Admin: 02/22/17 11:49 Dose: 1 unit Metoprolol Succinate (Toprol Xl) 25 mg PO DAILY [facility] Last Admin: 02/22/17 09:51 Dose: 25 mg Nystatin (Nystop) 0 gm TOP BID [facility] Last Admin: 02/22/17 09:52 Dose: 1 applic Tramadol HCl (Ultram) 50 mg PO TID PRN PRN Reason: Pain Last Admin: 02/22/17 10:03 Dose: 50 mg Discontinued Medications Bumetanide (Bumex) 0.5 mg IVPUSH ONETIME ONE Stop: 02/20/17 09:01 Last Admin: 02/20/17 10:04 Dose: 0.5 mg Ceftriaxone Sodium 2 gm/ (Sodium Chloride) 100 mls @ 200 mls/hr IV ONETIME ONE Stop: 02/19/17 18:56 Last Admin: 02/19/17 18:49 Dose: 200 mls/hr Vancomycin HCl 1 gm/ Sodium (Chloride) 250 mls @ 250 mls/hr IV Q24H [facility] Last Admin: 02/20/17 21:32 Dose: 250 mls/hr Sodium Chloride (Normal Saline) 1,000 mls @ 75 mls/hr IV ASDIRECTED [facility] Last Admin: 02/19/17 21:09 Dose: 75 mls/hr Linezolid (Zyvox) 600 mg PO Q12H [facility] Last Admin: 02/19/17 20:11 Dose: Not Given Vancomycin HCl (Pharmacy To Dose - Vancomycin) 0 dose .XX ASDIRECTED PRN PRN Reason: RX TO DOSE VANCOMYCIN - Exam General: Reports: alert, oriented HEENT: Denies: Scleral icterus Lungs: Reports: Normal respiratory effort. Denies: Rales, Wheezing Cardiovascular: Reports: Regular Rhythm, No Murmurs *Q Meaningful Use (DIS) - VTE *Q VTE Criteria *Q: - Stroke *Q Stroke Criteria *Q: - AMI *Q AMI Criteria *Q:
== END 2017-02-22 14:17 | disposition home or self-care (01) | DRG 690 ==
LOC: JD.ED 15:20 → JD.MS 18:41
PROVIDERS: ADMIT Internal Medicine Cardiovascular Disease; ATTEND Internal Medicine Cardiovascular Disease
DX: N12 Tubulo-interstitial nephritis, not specified as acute or chronic (principal); N39.0 Urinary tract infection, site not specified; L03.311 Cellulitis of abdominal wall; Z68.41 Body mass index [BMI] 40.0-44.9, adult; B95.2 Enterococcus as the cause of diseases classified elsewhere; F41.9 Anxiety disorder, unspecified; E87.70 Fluid overload, unspecified; E11.9 Type 2 diabetes mellitus without complications; Z79.84 Long term (current) use of oral hypoglycemic drugs; E78.00 Pure hypercholesterolemia, unspecified; I10 Essential (primary) hypertension; R41.9 Unspecified symptoms and signs involving cognitive functions and awareness; Z96.653 Presence of artificial knee joint, bilateral; G89.29 Other chronic pain; M54.9 Dorsalgia, unspecified; B37.9 Candidiasis, unspecified; N64.59 Other signs and symptoms in breast; E66.01 Morbid (severe) obesity due to excess calories; Z79.899 Other long term (current) drug therapy; Z88.8 Allergy status to other drugs, medicaments and biological substances
CPT/HCPCS: 36415; 71020; 71020-26; 80048; 80053; 80061; 81001; 82962; 83036; 83735; 84443; 85025; 85652; 86140; 87040; 87086; 87088; 87186; 87804; 96374; 97161-GP; 97165-GO; 97535-GO; 99285; 99285-25; A9270-GY; J0696; J1650; J1815-GY; J3370; J7030; J7040; J7050

== ENCOUNTER 2019-04-05 10:27 | Emergency (ER) | payer MEDICARE, BC ==
--- NOTE | 2019-04-05 10:52 | EDM.PDOC ---
ED HPI GENERAL MEDICAL PROBLEM - General Chief Complaint: Genitourinary Problem Stated Complaint: URINARY PROBLEMS Time Seen by Provider: 04/05/19 10:52 Source of Information: Reports: Patient History Limitations: Reports: No Limitations - History of Present Illness INITIAL COMMENTS - FREE TEXT/NARRATIVE: 73-year-old female presents for evaluation and treatment of UTI like symptoms. Patient reports she's been experiencing problems with urinary tract infection since mid February. She states that she has been on 4 different antibiotics for this. She is currently on Macrobid. She reports that she woke up this morning she is experienced a strong urine odor and increased urinary fruits frequency. She reports some minor suprapubic discomfort and some dysuria. Patient also reports yesterday she felt lightheaded. She states that she she was at friend's home and fell. She states her friend helped her down she landed on her buttocks. She is stating that she has a little bit of chest pain. No shortness of breath, nausea or vomiting. She reports she did not hit her head. Patient is a diabetic, blood sugar is 108 this morning. Patient's primary care provider is in [place], she has an appointment with them on Wednesday. Lower Back Pain Score (Numeric/FACES): 3 - Related Data Allergies Allergy/AdvReac Type Severity Reaction Status Date / Time sulfamethoxazole AdvReac Vomiting Verified 04/05/19 10:47 [From Bactrim] trimethoprim [From Bactrim] AdvReac Vomiting Verified 04/05/19 10:47 Home Meds: Home Meds Bumetanide 0.5 mg PO DAILY 02/19/17 [History] Clopidogrel [Plavix] 75 mg PO DAILY 02/19/17 [History] Enalapril [Vasotec] 10 mg PO DAILY 02/19/17 [History] Metoprolol Succinate [Toprol XL] 25 mg PO DAILY 02/19/17 [History] glipiZIDE [Glipizide ER] 5 mg PO BID 02/19/17 [History] traMADol HCl [Tramadol HCl] 50 mg PO TID PRN 02/19/17 [History] Insulin Aspart [NovoLOG] 0 unit SQ ASDIRECTED 04/05/19 [History] Insulin Detemir [Levemir] 15 unit SQ BEDTIME 04/05/19 [History] Nitrofurantoin Woods/Macrocryst [Nitrofurantoin [place]-MCR] 100 mg PO BID 04/05/19 [History] Past Medical History HEENT History: Reports: Impaired Vision, Other (See Below) Other HEENT History: wears glasses and has cataracts Cardiovascular History: Reports: High Cholesterol, Hypertension Respiratory History: Reports: Sleep Apnea, Other (See Below) Other Respiratory History: wears cpap at night denies need for oxygen at home when asked. TONG CARRIER History: Reports: Other TONG CARRIER History: 2 vaginal births Psychiatric History: Reports: Anxiety Endocrine/Metabolic History: Reports: Diabetes, Type II Dermatologic History: Reports: Other (See Below) Other Dermatologic History: it is reported that patient has a rash under right breast and to bilateral groin folds. has nystatin cream for these areas. - Past Surgical History HEENT Surgical History: Reports: Cataract Surgery Musculoskeletal Surgical History: Reports: Joint Replacement Dermatological Surgical History: Reports: Other (See Below) Social & Family History - Family History Family Medical History: Noncontributory - Caffeine Use Caffeine Use: Reports: None Caffeine Use Comment: couple cups of coffee every day ED ROS GENERAL - Review of Systems Review Of Systems: See Below Constitutional: Denies: Fever, Chills Respiratory: Denies: Shortness of Breath Cardiovascular: Reports: Chest Pain, Lightheadedness. Denies: Syncope GI/Abdominal: Reports: Abdominal Pain (minor suprapubic tenderness). Denies: Nausea, Vomiting : Reports: Dysuria, Frequency, Other (reports strong urine odor) ED EXAM, RENAL/ - Physical Exam Exam: See Below Exam Limited By: No Limitations General Appearance: Alert, WD/WN, No Apparent Distress, Obese Nose: Normal Inspection Throat/Mouth: Normal Inspection, Normal Lips, Normal Voice, No Airway Compromise Respiratory/Chest: No Respiratory Distress, Lungs Clear, Normal Breath Sounds Cardiovascular: Normal Peripheral Pulses, Regular Rate, Rhythm, No Murmur GI/Abdominal: Normal Bowel Sounds, Soft, Non-Tender Neurological: Alert, Oriented, Normal Cognition Psychiatric: Normal Affect, Normal Mood Skin Exam: Warm, Dry, Normal Color EKG INTERPRETATION EKG Date: 04/05/19 Time: 11:28 Rhythm: NSR Rate (Beats/Min): 68 [place]: Normal P-Wave: Present QRS: Normal ST-T: Normal QT: Normal EKG Interpretation Comments: NSR at 68 bpm. No AVB. No AE. No ischemic changes. Normal transition. No LAD/ RAD. No LVH/RVH. No IVCD. Qtc within normal limits with a QTc of 447. Reviewed by myself and Dr. De Dios. Course - Vital Signs Last Recorded V/S: Last Vital Signs Temp 97.1 F 04/05/19 14:10 Pulse 64 04/05/19 14:10 Resp 18 04/05/19 14:10 BP 184/74 H 04/05/19 14:10 Pulse Ox 95 04/05/19 14:10 Orthostatic Blood Pressure [ 187/94 Standing] Orthostatic Blood Pressure [ 179/101 Sitting] Orthostatic Blood Pressure [ 174/82 Supine] - Orders/Labs/Meds Orders: Active Orders 24 hr Category Date Time Status Cardiac Monitoring [RC] . DIRECTED Care 04/05/19 11:17 Active EKG Documentation Completion [RC] ASDIRECTED Care 04/05/19 11:22 Active Orthostatic Vital Signs [RC] ASDIRECTED Care 04/05/19 11:17 Active Peripheral IV Care [RC] . DIRECTED Care 04/05/19 11:24 Active CULTURE URINE [RM] Stat Lab 04/05/19 10:30 Received Peripheral IV Insertion Adult [OM.PC] Routine Oth 04/05/19 11:24 Ordered EKG 12 Lead [EK] Stat Ther 04/05/19 11:17 Ordered Labs: Laboratory Tests 04/05/19 04/05/19 04/05/19 Range/Units 10:30 11:30 11:30 WBC 7.37 (3.98-10.04) K/mm3 RBC 3.32 L (3.98-5.22) M/mm3 Hgb 9.7 L (11.2-15.7) gm/L Hct 31.2 L (34.1-44.9) % MCV 94.0 (79.4-94.8) fl MCH 29.2 (25.6-32.2) pg MCHC 31.1 L (32.2-35.5) g/dl RDW Std Deviation 47.2 H (36.4-46.3) fL Plt Count 223 (182-369) K/mm3 MPV 10.3 (9.4-12.3) fl Neutrophils % (Manual) 59 (40-60) % Band Neutrophils % 0 (0-10) % Lymphocytes % (Manual) 28 (20-40) % Atypical Lymphs % 0 % Monocytes % (Manual) 3 (2-10) % Eosinophils % (Manual) 8 H (0.7-5.8) % Basophils % (Manual) 2 H (0.1-1.2) Platelet Estimate Adequate Hypochromasia 2+ moderate Microcytosis 2+ moderate RBC Morph Comment Abnormal Sodium 142 (136-145) mEq/L Potassium 4.0 (3.5-5.1) mEq/L Chloride 110 H (98-107) mEq/L Carbon Dioxide 24 (21-32) mEq/L Anion Gap 12.0 (5-15) BUN 34 H (7-18) mg/dL Creatinine 1.7 H (0.55-1.02) mg/dL Est Cr Clr Drug Dosing 21.91 mL/min Estimated GFR (MDRD) 29 (>60) mL/min BUN/Creatinine Ratio 20.0 H (14-18) Glucose 214 H (83-115) mg/dL Calcium 8.3 L (8.5-10.1) mg/dL Magnesium (1.8-2.4) mg/dl Total Bilirubin 0.2 (0.2-1.0) mg/dL AST 11 L (15-37) U/L ALT 13 L (14-59) U/L Alkaline Phosphatase 99 (46-116) U/L CK-MB (CK-2) 1.4 (0-3.6) ng/ml Troponin I < 0.017 (0.00-0.056) ng/mL C-Reactive Protein 0.9 (<1.0) mg/dL Total Protein 6.7 (6.4-8.2) g/dl Albumin 2.5 L (3.4-5.0) g/dl Globulin 4.2 gm/dL Albumin/Globulin Ratio 0.6 L (1-2) Urine Color Yellow (Yellow) Urine Appearance Clear (Clear) Urine pH 6.0 (5.0-8.0) Ur Specific [place] > or = 1.030 (1.005-1.030) Urine Protein 3+ H (Negative) Urine Glucose (UA) Negative (Negative) Urine Ketones Negative (Negative) Urine Occult Blood 1+ H (Negative) Urine Nitrite Negative (Negative) Urine Bilirubin Negative (Negative) Urine Urobilinogen 0.2 (0.2-1.0) Ur Leukocyte Esterase Trace H (Negative) Urine RBC 0-5 (0-5) /hpf Urine WBC 5-10 H (0-5) /hpf Ur Epithelial Cells 0-5 (0-5) /hpf Urine Bacteria Rare (FEW) /hpf Urine Mucus Not seen (FEW) /hpf 04/05/19 Range/Units 11:30 WBC (3.98-10.04) K/mm3 RBC (3.98-5.22) M/mm3 Hgb (11.2-15.7) gm/L Hct (34.1-44.9) % MCV (79.4-94.8) fl MCH (25.6-32.2) pg MCHC (32.2-35.5) g/dl RDW Std Deviation (36.4-46.3) fL Plt Count (182-369) K/mm3 MPV (9.4-12.3) fl Neutrophils % (Manual) (40-60) % Band Neutrophils % (0-10) % Lymphocytes % (Manual) (20-40) % Atypical Lymphs % % Monocytes % (Manual) (2-10) % Eosinophils % (Manual) (0.7-5.8) % Basophils % (Manual) (0.1-1.2) Platelet Estimate Hypochromasia Microcytosis RBC Morph Comment Sodium (136-145) mEq/L Potassium (3.5-5.1) mEq/L Chloride (98-107) mEq/L Carbon Dioxide (21-32) mEq/L Anion Gap (5-15) BUN (7-18) mg/dL Creatinine (0.55-1.02) mg/dL Est Cr Clr Drug Dosing mL/min Estimated GFR (MDRD) (>60) mL/min BUN/Creatinine Ratio (14-18) Glucose (83-115) mg/dL Calcium (8.5-10.1) mg/dL Magnesium 1.8 (1.8-2.4) mg/dl Total Bilirubin (0.2-1.0) mg/dL AST (15-37) U/L ALT (14-59) U/L Alkaline Phosphatase (46-116) U/L CK-MB (CK-2) (0-3.6) ng/ml Troponin I (0.00-0.056) ng/mL C-Reactive Protein (<1.0) mg/dL Total Protein (6.4-8.2) g/dl Albumin (3.4-5.0) g/dl Globulin gm/dL Albumin/Globulin Ratio (1-2) Urine Color (Yellow) Urine Appearance (Clear) Urine pH (5.0-8.0) Ur Specific [place] (1.005-1.030) Urine Protein (Negative) Urine Glucose (UA) (Negative) Urine Ketones (Negative) Urine Occult Blood (Negative) Urine Nitrite (Negative) Urine Bilirubin (Negative) Urine Urobilinogen (0.2-1.0) Ur Leukocyte Esterase (Negative) Urine RBC (0-5) /hpf Urine WBC (0-5) /hpf Ur Epithelial Cells (0-5) /hpf Urine Bacteria (FEW) /hpf Urine Mucus (FEW) /hpf Meds: Medications Discontinued Medications Generic Name Dose Route Start Last Admin Trade Name Freq PRN Reason Stop Dose Admin Lactated Ringer's 1,000 mls @ 500 mls/hr 04/05/19 11:25 04/05/19 11:34 Ringers, Lactated IV 04/05/19 13:24 500 mls/hr .BOLUS ONE Administration Sodium Chloride 10 ml 04/05/19 11:24 04/05/19 11:34 Saline Flush FLUSH 10 ml ASDIRECTED PRN Administration Keep Vein Open - Radiology Interpretation Free Text/Narrative:: Chest: Two views of the chest were obtained. Comparison: Prior chest x-ray of 02/19/17. Heart size is normal. Mild tortuosity of the thoracic aorta is seen. Lungs show no acute parenchymal change. Slight compression deformities are seen within the spine which are stable. Degenerative change is also noted within the spine which is stable. Impression: 1. Nothing acute is seen on two-view chest x-ray. - Re-Assessments/Exams Free Text/Narrative Re-Assessment/Exam: 04/05/19 13:31 wet prep returned negative. Reviewed the labs, ekg and imaging with the patient. I feel she is on the right antibiotic and is likely getting a little cysitis from minor dehydration. Patient was given fluids. she feels better. We will discharge her home at this time. Discharge instructions as documented. Departure - Departure Time of Disposition: 13:40 Disposition: Home, Self-Care 01 Condition: Fair Clinical Impression: Cystitis, Dehydration, mild - Discharge Information *PRESCRIPTION DRUG MONITORING PROGRAM REVIEWED*: No *COPY OF PRESCRIPTION DRUG MONITORING REPORT IN PATIENT ANU: No Instructions: Dehydration, Adult, [id number] Referrals: Coco Roman [facility] [Primary Care Provider] - Forms: ED Department Discharge Additional Instructions: Follow-up with your primary care provider Wednesday as planned. Make sure you are drinking plenty of fluids. Drink water, Gatorade or Powerade that is sugar-free. Rest. Continue on the antibiotic you have been prescribed. Please return to the ER for symptoms change or worsen. - My Orders Last 24 Hours: My Active Orders 04/05/19 10:30 CULTURE URINE [RM] Stat 04/05/19 11:17 Cardiac Monitoring [RC] . DIRECTED Orthostatic Vital Signs [RC] ASDIRECTED EKG 12 Lead [EK] Stat 04/05/19 11:22 EKG Documentation Completion [RC] ASDIRECTED 04/05/19 11:24 Peripheral IV Care [RC] . DIRECTED Peripheral IV Insertion Adult [OM.PC] Routine - Assessment/Plan Last 24 Hours: My Active Orders 04/05/19 10:30 CULTURE URINE [RM] Stat 04/05/19 11:17 Cardiac Monitoring [RC] . DIRECTED Orthostatic Vital Signs [RC] ASDIRECTED EKG 12 Lead [EK] Stat 04/05/19 11:22 EKG Documentation Completion [RC] ASDIRECTED 04/05/19 11:24 Peripheral IV Care [RC] . DIRECTED Peripheral IV Insertion Adult [OM.PC] Routine
[2019-04-05] MEDS ORDERED: Sodium Chloride 0.9% 10 ML Syringe FLUSH PRN (11:24)
[2019-04-05] MEDS ORDERED: Lactated Ringers 1,000 ML IV ONE (11:25)
--- NOTE | 2019-04-05 12:26 | CR ---
Chest: Two views of the chest were obtained. Comparison: Prior chest x-ray of 02/19/17. Heart size is normal. Mild tortuosity of the thoracic aorta is seen. Lungs show no acute parenchymal change. Slight compression deformities are seen within the spine which are stable. Degenerative change is also noted within the spine which is stable. Impression: 1. Nothing acute is seen on two-view chest x-ray. Diagnostic code #2
[2019-04-05 14:22] VITALS: BP 184/74
== END 2019-04-05 14:10 | disposition home or self-care (01) ==
LOC: JD.ED 10:27
DX: N30.90 Cystitis, unspecified without hematuria (principal); E86.0 Dehydration; I10 Essential (primary) hypertension; E78.00 Pure hypercholesterolemia, unspecified; E11.9 Type 2 diabetes mellitus without complications; F41.9 Anxiety disorder, unspecified; Z79.4 Long term (current) use of insulin; Z79.899 Other long term (current) drug therapy; Z88.1 Allergy status to other antibiotic agents; Z88.2 Allergy status to sulfonamides
CPT/HCPCS: 36415; 71046; 80053; 81001; 82553; 83735; 84484; 85007; 85027; 86140; 87086; 87210; 87808; 93005; 96360; 99284; J7120; 93010

== ENCOUNTER 2019-07-21 11:28 | Emergency (ER) | payer MEDICARE, BC ==
[2019-07-21] MEDS ORDERED: Sodium Chloride 0.9% 10 ML Syringe FLUSH PRN (11:41)
[2019-07-21] MEDS ORDERED: Sodium Chloride 0.9% 1,000 ML IV ONE (11:41)
[2019-07-21 11:42] VITALS: BP 194/98
--- NOTE | 2019-07-21 11:49 | EDM.PDOC ---
ED HPI GENERAL MEDICAL PROBLEM - General Chief Complaint: Neuro Symptoms/Deficits Stated Complaint: [facility] Time Seen by Provider: 07/21/19 11:39 Source of Information: Reports: Patient History Limitations: Reports: No Limitations - History of Present Illness INITIAL COMMENTS - FREE TEXT/NARRATIVE: 73-year-old female is brought in by [facility] ambulance service for possible stroke. Last known well was last night around 2129. She states that when she woke up around 06:30. she did not feel well. She appreciated right-sided weakness and states that she could not open her fridge with the right arm. She also felt that she had trouble enunciating speech. Per EMS they did not appreciate any deficits. Blood sugar was 196 per EMS. She has a history of TIAs and has had 2 in the past. She is currently on Plavix. She reports that she has a slight headache at this time. Denies any numbness or tingling in the extremities. No dizziness, lightheadedness or syncope. Feels the right sided weakness has improved since earlier. stroke alert called upon arrival to the ER. - Related Data Allergies Allergy/AdvReac Type Severity Reaction Status Date / Time sulfamethoxazole AdvReac Vomiting Verified 07/21/19 11:49 [From Bactrim] trimethoprim [From Bactrim] AdvReac Vomiting Verified 07/21/19 11:49 Home Meds: Home Meds Bumetanide 0.5 mg PO DAILY 02/19/17 [History] Clopidogrel [Plavix] 75 mg PO DAILY 02/19/17 [History] Enalapril [Vasotec] 10 mg PO DAILY 02/19/17 [History] Metoprolol Succinate [Toprol XL] 25 mg PO DAILY 02/19/17 [History] glipiZIDE [Glipizide ER] 5 mg PO BID 02/19/17 [History] traMADol HCl [Tramadol HCl] 50 mg PO TID PRN 02/19/17 [History] Insulin Aspart [NovoLOG] 0 unit SQ ASDIRECTED 04/05/19 [History] Insulin Detemir [Levemir] 15 unit SQ BEDTIME 04/05/19 [History] Nitrofurantoin Hood/Macrocryst [Nitrofurantoin Hood-MCR] 100 mg PO BID 04/05/19 [History] Cholecalciferol (Vitamin D3) [Vitamin D3] 1,000 unit PO DAILY 07/21/19 [History] Magnesium Oxide 400 mg PO DAILY 07/21/19 [History] Past Medical History HEENT History: Reports: Impaired Vision, Other (See Below) Other HEENT History: wears glasses and has cataracts Cardiovascular History: Reports: High Cholesterol, Hypertension Respiratory History: Reports: Sleep Apnea, Other (See Below) Other Respiratory History: wears cpap at night denies need for oxygen at home when asked. Genitourinary History: Reports: Pyelonephritis, UTI, Recurrent, Other (See Below ) Other Genitourinary History: urosepsis. INFANTRY WEAPONS OFFICER History: Reports: Other INFANTRY WEAPONS OFFICER History: 2 vaginal births Musculoskeletal History: Reports: Back Pain, Chronic Psychiatric History: Reports: Anxiety Endocrine/Metabolic History: Reports: Diabetes, Type II Hematologic History: Reports: Anemia, Blood Transfusion(s) Oncologic (Cancer) History: Reports: Breast Dermatologic History: Reports: Other (See Below) Other Dermatologic History: it is reported that patient has a rash under right breast and to bilateral groin folds. has nystatin cream for these areas. - Infectious Disease History Infectious Disease History: Reports: Chicken Pox, Measles - Past Surgical History HEENT Surgical History: Reports: Cataract Surgery GI Surgical History: Reports: Cholecystectomy Female Surgical History: Reports: Hysterectomy Musculoskeletal Surgical History: Reports: Joint Replacement Dermatological Surgical History: Reports: Other (See Below) Social & Family History - Family History Family Medical History: Noncontributory - Tobacco Use Smoking Status *Q: Never Smoker - Caffeine Use Caffeine Use: Reports: None Caffeine Use Comment: couple cups of coffee every day - Recreational Drug Use Recreational Drug Use: No ED ROS GENERAL - Review of Systems Review Of Systems: See Below Neurological: Reports: Headache (slight), Trouble Speaking (trouble with word finding and enunciation), Weakness (Right-sided early or resolving). Denies: Dizziness, Numbness, Tingling ED EXAM, NEURO - Physical Exam Exam: See Below Exam Limited By: No Limitations General Appearance: Alert, WD/WN, No Apparent Distress, Obese Eye Exam: Bilateral Eye: EOMI, Normal Inspection, PERRL Ears: Normal External Exam Nose: Normal Inspection, Nasal Deformity Throat/Mouth: Normal Inspection, Normal Lips, Normal Voice, No Airway Compromise , Other (Smile is symmetric, no facial droop) Neck: Normal Inspection (No deviation of her tongue) Respiratory/Chest: No Respiratory Distress, Lungs Clear, Normal Breath Sounds Cardiovascular: Normal Peripheral Pulses, Regular Rate, Rhythm, No Murmur Neurological: Alert, Normal Mood/Affect, Normal Dorsiflexion, Normal Plantar Flexion, Other (Difficulty with word finding. Has difficulty identifying pictures for an age stroke scale. Formal score is 4. Control Systems Technician strength is equal, dorsiflexion plantarflexion are equal. No drift of extremities. No sensory deficits) Psychiatric: Normal Affect, Normal Mood Skin Exam: Warm, Dry, Normal Color EKG INTERPRETATION EKG Date: 07/21/19 Time: 11:54 Rhythm: NSR Rate (Beats/Min): 67 [place]: Normal P-Wave: Present QRS: Normal ST-T: Normal QT: Normal EKG Interpretation Comments: NSR at 67 bpm. 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 Left atrial hypertrophy. t wave inversion in AVL. LAD (-17 degrees). Reviewed by myself and Dr. Bloom. Course - Vital Signs Last Recorded V/S: Last Vital Signs Temp 98.7 F 07/21/19 11:35 Pulse 75 07/21/19 11:35 Resp 16 07/21/19 11:35 BP 194/98 H 07/21/19 11:35 Pulse Ox 97 07/21/19 11:35 - Orders/Labs/Meds Orders: Active Orders 24 hr Category Date Time Status Cardiac Monitoring [RC] . DIRECTED Care 07/21/19 13:49 Active EKG 12 Lead [EKG Documentation Completion] [RC] STAT Care 07/21/19 11:41 Active NIH Stroke Scale [RC] ASDIRECTED Care 07/21/19 11:40 Active Peripheral IV Care [RC] . DIRECTED Care 07/21/19 11:42 Active Sodium Chloride 0.9% [Normal Saline] 1,000 ml Med 07/21/19 11:41 Active IV ONETIME Sodium Chloride 0.9% [Saline Flush] Med 07/21/19 11:41 Active 10 ml FLUSH ASDIRECTED PRN Peripheral IV Insertion Adult [OM.PC] Routine Oth 07/21/19 11:41 Ordered Medication Orders Sodium Chloride (Normal Saline) 1,000 mls @ 125 mls/hr IV ONETIME ONE Stop: 07/21/19 19:40 Last Admin: 07/21/19 11:58 Dose: 125 mls/hr Sodium Chloride (Saline Flush) 10 ml FLUSH ASDIRECTED PRN PRN Reason: Keep Vein Open Last Admin: 07/21/19 11:58 Dose: 10 ml Labs: Laboratory Tests 07/21/19 07/21/19 07/21/19 Range/Units 11:36 11:45 11:58 WBC 10.66 H (3.98-10.04) K/mm3 RBC 3.57 L (3.98-5.22) M/mm3 Hgb 10.4 L (11.2-15.7) gm/L Hct 32.8 L (34.1-44.9) % MCV 91.9 (79.4-94.8) fl MCH 29.1 (25.6-32.2) pg MCHC 31.7 L (32.2-35.5) g/dl RDW Std Deviation 46.0 (36.4-46.3) fL Plt Count 243 (182-369) K/mm3 MPV 11.1 (9.4-12.3) fl Neutrophils % (Manual) 57 (40-60) % Band Neutrophils % 0 (0-10) % Lymphocytes % (Manual) 36 (20-40) % Atypical Lymphs % 0 % Monocytes % (Manual) 4 (2-10) % Eosinophils % (Manual) 3 (0.7-5.8) % Basophils % (Manual) 0 L (0.1-1.2) Platelet Estimate Adequate RBC Morph Comment Normal PT (9.7-12.0) SECONDS INR APTT (22-31) SECONDS Sodium (136-145) mEq/L Potassium (3.5-5.1) mEq/L Chloride (98-107) mEq/L Carbon Dioxide (21-32) mEq/L Anion Gap (5-15) BUN (7-18) mg/dL Creatinine (0.55-1.02) mg/dL Est Cr Clr Drug Dosing mL/min Estimated GFR (MDRD) (>60) mL/min BUN/Creatinine Ratio (14-18) Glucose (83-115) mg/dL POC Glucose 107 (83-110) mg/dL Calcium (8.5-10.1) mg/dL Magnesium (1.8-2.4) mg/dl Total Bilirubin (0.2-1.0) mg/dL AST (15-37) U/L ALT (14-59) U/L Alkaline Phosphatase (46-116) U/L Total Protein (6.4-8.2) g/dl Albumin (3.4-5.0) g/dl Globulin gm/dL Albumin/Globulin Ratio (1-2) Urine Color Yellow (Yellow) Urine Appearance Clear (Clear) Urine pH 6.5 (5.0-8.0) Ur Specific [place] 1.020 (1.005-1.030) Urine Protein 2+ H (Negative) Urine Glucose (UA) Negative (Negative) Urine Ketones Negative (Negative) Urine Occult Blood 1+ H (Negative) Urine Nitrite Negative (Negative) Urine Bilirubin Negative (Negative) Urine Urobilinogen 0.2 (0.2-1.0) Ur Leukocyte Esterase Negative (Negative) Urine RBC 0-5 (0-5) /hpf Urine WBC 0-5 (0-5) /hpf Ur Epithelial Cells 0-5 (0-5) /hpf Urine Bacteria Not seen (FEW) /hpf Urine Mucus Not seen (FEW) /hpf 07/21/19 07/21/19 Range/Units 11:58 11:58 WBC (3.98-10.04) K/mm3 RBC (3.98-5.22) M/mm3 Hgb (11.2-15.7) gm/L Hct (34.1-44.9) % MCV (79.4-94.8) fl MCH (25.6-32.2) pg MCHC (32.2-35.5) g/dl RDW Std Deviation (36.4-46.3) fL Plt Count (182-369) K/mm3 MPV (9.4-12.3) fl Neutrophils % (Manual) (40-60) % Band Neutrophils % (0-10) % Lymphocytes % (Manual) (20-40) % Atypical Lymphs % % Monocytes % (Manual) (2-10) % Eosinophils % (Manual) (0.7-5.8) % Basophils % (Manual) (0.1-1.2) Platelet Estimate RBC Morph Comment PT 10.0 (9.7-12.0) SECONDS INR < 0.93 APTT 25 (22-31) SECONDS Sodium 142 (136-145) mEq/L Potassium 4.1 (3.5-5.1) mEq/L Chloride 108 H (98-107) mEq/L Carbon Dioxide 25 (21-32) mEq/L Anion Gap 13.1 (5-15) BUN 42 H (7-18) mg/dL Creatinine 1.9 H (0.55-1.02) mg/dL Est Cr Clr Drug Dosing 19.60 mL/min Estimated GFR (MDRD) 26 (>60) mL/min BUN/Creatinine Ratio 22.1 H (14-18) Glucose 119 H (83-115) mg/dL POC Glucose (83-110) mg/dL Calcium 8.4 L (8.5-10.1) mg/dL Magnesium 1.9 (1.8-2.4) mg/dl Total Bilirubin 0.2 (0.2-1.0) mg/dL AST 12 L (15-37) U/L ALT 15 (14-59) U/L Alkaline Phosphatase 103 (46-116) U/L Total Protein 7.5 (6.4-8.2) g/dl Albumin 2.9 L (3.4-5.0) g/dl Globulin 4.6 gm/dL Albumin/Globulin Ratio 0.6 L (1-2) Urine Color (Yellow) Urine Appearance (Clear) Urine pH (5.0-8.0) Ur Specific [place] (1.005-1.030) Urine Protein (Negative) Urine Glucose (UA) (Negative) Urine Ketones (Negative) Urine Occult Blood (Negative) Urine Nitrite (Negative) Urine Bilirubin (Negative) Urine Urobilinogen (0.2-1.0) Ur Leukocyte Esterase (Negative) Urine RBC (0-5) /hpf Urine WBC (0-5) /hpf Ur Epithelial Cells (0-5) /hpf Urine Bacteria (FEW) /hpf Urine Mucus (FEW) /hpf Meds: Medications Generic Name Dose Route Start Last Admin Trade Name Freq PRN Reason Stop Dose Admin Sodium Chloride 1,000 mls @ 125 mls/hr 07/21/19 11:41 07/21/19 11:58 Normal Saline IV 07/21/19 19:40 125 mls/hr ONETIME ONE Administration Sodium Chloride 10 ml 07/21/19 11:41 07/21/19 11:58 Saline Flush FLUSH 10 ml ASDIRECTED PRN Administration Keep Vein Open Discontinued Medications Generic Name Dose Route Start Last Admin Trade Name Freq PRN Reason Stop Dose Admin Aspirin 324 mg 07/21/19 14:14 Aspirin PO 07/21/19 14:15 ONETIME ONE Labetalol HCl 20 mg 07/21/19 11:55 07/21/19 12:04 Normodyne IVPUSH 07/21/19 11:56 20 mg ONETIME ONE Administration Protocol - Radiology Interpretation Free Text/Narrative:: Head CT Technique: Multiple axial sections through the brain were obtained. Intravenous contrast was not utilized. Comparison: No prior intracranial imaging is available. Findings: Small old infarct is noted within posterior left parietal region. Ventricles along with basal cisterns and sulci over the convexities are within normal limits for the patient's age. Minimal areas of diminished density is noted within the periventricular white matter compatible with small vessel ischemic demyelination change. No other abnormal parenchymal densities are seen. No evidence of intracranial hemorrhage. No midline shift or mass effect is seen. Atherosclerotic change is noted within the carotid siphon and within the vertebral vessels. Bone window settings were reviewed which show the visualized paranasal sinuses to appear without acute change. Mastoid sinuses are without acute change. No calvarial abnormality is seen. Impression: 1. Small old infarct within the left parietal region. 2. Other senescent change as noted above. 3. No acute intracranial abnormality is identified. MRI brain Technique: T1 sagittal; T2, T2 FLAIR, T1 and diffusion axial; T1 and T2 gradient echo coronal images of the brain were obtained. Comparison: Prior head CT study performed earlier on same day (11:41 AM). Findings: Ventricles along with basal cisterns and sulci over the convexities are within normal limits for the patient's age. Areas of increased signal are seen within the subcortical and periventricular white matter which are compatible with small vessel ischemic demyelination change. Old small infarct is noted within posterior left parietal region extending into the cortex. No other abnormal signal seen within the brain parenchyma. Normal signal void is seen within the major cerebral arteries within the skull base. So-called empty sella is present. Mild abnormal diffusion seen within the left anterior parietal region compatible with relatively acute cortical infarct. No other diffusion abnormalities are seen. Impression: 1. Mild diffusion abnormality within mostly cortical surface of the left parietal region compatible with relatively recent infarct. This may be reversible as no abnormal signal is seen on the FLAIR sequence in this area. 2. Other senescent change as noted above. 3. So-called empty sella which is a normal variant if patient has no symptoms of hypopituitarism MRI angiogram Technique: [id number] MR angiogram study was obtained centered to the [place]. Multiple MIP images were obtained in multiple projections. Findings: Small distal vertebral artery is seen with dominant right vertebral artery. Basilar artery is patent. Small appearing posterior cerebral arteries are noted on both sides. Carotid siphons are unremarkable. Anterior cerebral arteries appear within normal limits. Middle cerebral artery shows no focal stenosis. Impression: 1. Small left vertebral artery as well as diminished size of the posterior cerebral arteries on both sides. 2. No additional abnormality is appreciated on MR angiogram study scented to the [place]. - Re-Assessments/Exams Free Text/Narrative Re-Assessment/Exam: 07/21/19 14:24 We were able to get an MRI after CT scan which showed an area in the left parietal region as possibly reversible. Patient would benefit from a stroke center. [facility] does not have an on over the weekend. [place] spoke with neurology and hospice. They agreed to accept the patient. Recommended giving a full 325 mg aspirin. Will send by ambulance. Departure - Departure Time of Disposition: 14:25 Disposition: DC/Tfer to Acute Hospital 02 Condition: Fair Clinical Impression: Cerebrovascular accident (CVA) - Discharge Information *PRESCRIPTION DRUG MONITORING PROGRAM REVIEWED*: No *COPY OF PRESCRIPTION DRUG MONITORING REPORT IN PATIENT ANU: No Referrals: Coco Roman, SURGICAL GARMENT ASSEMBLY SUPERVISOR [Primary Care Provider] - Forms: ED Department Discharge Additional Instructions: Patient to go by ground ambulance to [facility]. Dr. Calabrese accepting. - My Orders Last 24 Hours: My Active Orders 07/21/19 11:40 NIH Stroke Scale [RC] ASDIRECTED 07/21/19 11:41 EKG 12 Lead [EKG Documentation Completion] [RC] STAT Sodium Chloride 0.9% [Normal Saline] 1,000 ml IV ONETIME Sodium Chloride 0.9% [Saline Flush] 10 ml FLUSH ASDIRECTED PRN Peripheral IV Insertion Adult [OM.PC] Routine 07/21/19 11:42 Peripheral IV Care [RC] . DIRECTED 07/21/19 13:49 Cardiac Monitoring [RC] . DIRECTED - Assessment/Plan Last 24 Hours: My Active Orders 07/21/19 11:40 NIH Stroke Scale [RC] ASDIRECTED 07/21/19 11:41 EKG 12 Lead [EKG Documentation Completion] [RC] STAT Sodium Chloride 0.9% [Normal Saline] 1,000 ml IV ONETIME Sodium Chloride 0.9% [Saline Flush] 10 ml FLUSH ASDIRECTED PRN Peripheral IV Insertion Adult [OM.PC] Routine 07/21/19 11:42 Peripheral IV Care [RC] . DIRECTED 07/21/19 13:49 Cardiac Monitoring [RC] . DIRECTED
[2019-07-21] MEDS ORDERED: Labetalol 100 MG/20 ML MDV IVPUSH ONE (11:55)
--- NOTE | 2019-07-21 12:26 | CT ---
Head CT Technique: Multiple axial sections through the brain were obtained. Intravenous contrast was not utilized. Comparison: No prior intracranial imaging is available. Findings: Small old infarct is noted within posterior left parietal region. Ventricles along with basal cisterns and sulci over the convexities are within normal limits for the patient's age. Minimal areas of diminished density are noted within the periventricular white matter compatible with small vessel ischemic demyelination change. No other abnormal parenchymal densities are seen. No evidence of intracranial hemorrhage. No midline shift or mass effect is seen. Atherosclerotic change is noted within the carotid siphon and within the vertebral vessels. Bone window settings were reviewed which show the visualized paranasal sinuses to appear without acute change. Mastoid sinuses are without acute change. No calvarial abnormality is seen. Impression: 1. Small old infarct within the left parietal region. 2. Other senescent change as noted above. 3. No acute intracranial abnormality is identified. Diagnostic code #2
--- NOTE | 2019-07-21 13:21 | CR ---
Chest: Portable view of the chest was obtained. Comparison: Prior chest x-ray of 04/05/19. Heart size and mediastinum are within normal limits for portable technique. Lungs are clear. Bony structures are grossly intact. Impression: 1. Nothing acute is appreciated on portable chest x-ray. Diagnostic code #1
--- NOTE | 2019-07-21 13:21 | MR ---
MRI brain Technique: T1 sagittal; T2, T2 FLAIR, T1 and diffusion axial; T1 and T2 gradient echo coronal images of the brain were obtained. Comparison: Prior head CT study performed earlier on same day (11:41 AM). Findings: Ventricles along with basal cisterns and sulci over the convexities are within normal limits for the patient's age. Areas of increased signal are seen within the subcortical and periventricular white matter which are compatible with small vessel ischemic demyelination change. Old small infarct is noted within posterior left parietal region extending into the cortex. No other abnormal signal seen within the brain parenchyma. Normal signal void is seen within the major cerebral arteries within the skull base. So-called empty sella is present. Mild abnormal diffusion seen within the left anterior parietal region compatible with relatively acute cortical infarct. No other diffusion abnormalities are seen. Impression: 1. Mild diffusion abnormality within mostly cortical surface of the left parietal region compatible with relatively recent infarct. This may be reversible as no abnormal signal is seen on the FLAIR sequence in this area. 2. Other senescent change as noted above. 3. So-called empty sella which is a normal variant if patient has no symptoms of hypopituitarism Diagnostic code #3
--- NOTE | 2019-07-21 13:39 | MR ---
MRI angiogram Technique: [id number] MR angiogram study was obtained centered to the [place]. Multiple MIP images were obtained in multiple projections. Findings: Small distal vertebral artery is seen with dominant right vertebral artery. Basilar artery is patent. Small appearing posterior cerebral arteries are noted on both sides. Carotid siphons are unremarkable. Anterior cerebral arteries appear within normal limits. Middle cerebral artery shows no focal stenosis. Impression: 1. Small left vertebral artery as well as diminished size of the posterior cerebral arteries on both sides. 2. No additional abnormality is appreciated on MR angiogram study scented to the [place]. Diagnostic code #2
[2019-07-21] MEDS ORDERED: Aspirin 81 MG Tab.Chew PO ONE (14:14)
[2019-07-21] MEDS ORDERED: LORazepam 2 MG/ML SDV IVPUSH ONE (14:31)
== END 2019-07-21 15:00 ==
LOC: JD.ED 11:28
DX: I63.9 Cerebral infarction, unspecified (principal); E78.00 Pure hypercholesterolemia, unspecified; I10 Essential (primary) hypertension; E11.9 Type 2 diabetes mellitus without complications; Z88.1 Allergy status to other antibiotic agents; Z79.899 Other long term (current) drug therapy; Z79.4 Long term (current) use of insulin
CPT/HCPCS: 36415; 70450; 70544; 70551; 71045; 80053; 81001; 82962; 83735; 85007; 85027; 85610; 85730; 93005; 96361; 96374; 96375; 99285; A9270; J2060; J3490; J7040